=== PATIENT | female | born 1995 | race Caucasian/White ===

== ENCOUNTER 2016-08-16 04:04 | Emergency (ER) | payer OTHER ==
[~2016-08-16] VITALS: Ht 160 cm; Wt 45.5 kg
[2016-08-16 04:07] VITALS: Ht 160 cm; Wt 45.5 kg
[2016-08-16] MEDS ORDERED: ONDANSETRON (ODT) 4 MG TAB ODT STA (04:48)
--- NOTE | 2016-08-16 04:57 | ERD ---
ER Documentation Chief Complaint Date/Time DATE: 08/16/16 TIME: 04:52 Chief Complaint Pelvic pain @2200 HPI 20-year-old female presented emergency room for pelvic pain that started at around 22:00. Patient stated that she is on her period and her bleeding has increased today with her sudden pain to her pelvic area. Pain was described as sharp non-radiating. She stated that she also noticed blood in her urine, stating that this is probably due to her vaginal bleeding/menstrual. Reports difficulty walking due to her pelvic pain. Denies headache, loss of consciousness, dizziness, blurry vision, changes in vision, photophobia, facial pain, ear pain, throat pain, difficulty swallowing, neck pain, shoulder pain, chest pain, cough, hemoptysis, back pain, loss of appetite, nausea, vomiting, hematochezia, diarrhea, constipation, vaginal discharge, , the possibility of being , bladder and bowel incontinences, extremity weakness, extremity tenderness, numbness or tingling sensation, difficulty walking, recent travel, recent exposure to illness, recent antibiotic use in the last 3 months, fever, chills. Allergy: No known drug allergies. PMH: Denies. Family medical history: Denies. AO LMP: "I am on my period." Medications: Denies. Surgery: Denies. Primary Social History: Denies smoking, use of alcohol, use of illegal drugs. ROS All systems reviewed and are negative except as per history of present illness. Allergies Allergies: Coded Allergies: No Known Allergy (Unverified , 08/16/16) Physical Exam Vitals Vital Signs Date Time Temp Pulse Resp B/P Pulse Ox O2 Delivery O2 Flow Rate FiO2 08/16/16 04:07 98.6 88 20 113/63 98 Physical Exam CONSTITUTIONAL: Well-appearing; well-nourished. HEAD: Normocephalic; atraumatic. EYES: Conjunctiva clear, sclera non-icteric, EOM intact. PERRL. Ears: Hearing intact. EACs clear, TMs non-bulging, non-inflamed, translucent & mobile, ossicles normal appearance, No obstructions, no erythema, no discharges Nose: No obstructions. No polyps. No external lesions. Mucosa non-inflamed. No external lesions, septum and turbinates normal. No rhinorrhea. No discharges. Frontal sinus is non-tender to palpation. Maxillary sinus is non-tender to palpation. MOUTH: Moist mucous membranes, no lesion, no obstructions, no vesicles, no thrush, patent airway Throat: Uvula in midline. Right tonsil is +1 with no erythema, no exudate. Left tonsil is +1 with no erythema, no exudate. Tolerating secretions well. Good gag reflex. Patent airway. Neck: Supple, without lesions, bruits, or adenopathy. No mass. Thyroid non- enlarged and non-tender to palpation. CHEST: Symmetrical chest. Respirations even and not labored. No retractions noted. CARDIOVASCULAR: Normal S1, S2. RRR. No murmurs, gallops. RESPIRATORY: Normal chest excursion with respiration; breath sounds clear and equal bilaterally; no wheezes, rhonchi, or rales. Breathing even and unlabored. Speaking in clear, full, and complete sentences w/ ease. ABDOMEN: Normal bowel sounds normal. Soft, round, non-distended, non-guarding, no tenderness, no rebound, no organomegaly, no masses, no pulsating abdominal mass. No hernia. No peritoneal signs. No right upper abdominal tenderness on light and deep palpation. No right lower abdominal tenderness on light and deep palpation. No left upper abdominal tenderness on light and deep palpation. No left lower abdominal tenderness on light and deep palpation. No epigastric tenderness on light and deep palpation. : No CVA tenderness. Pelvic pain/tenderness to light and deep palpation. Difficulty walking due to her pelvic pain. BACK: Symmetrical shoulder. Spine is midline without deformity, tenderness. No evidence of trauma or deformity. PELVIS: Pelvic pain/tenderness to light and deep palpation. Difficulty walking due to her pelvic pain. MUSCULOSKELETAL: Normal gait and station. No misalignment, asymmetry, crepitation, defects, tenderness, masses, effusions, decreased range of motion, instability, atrophy or abnormal strength or tone in the head, neck, spine, ribs , pelvis or extremities. No calf tenderness. NEUROVASCULAR: Distal pulses are present. Pedal pulse are present, equal, and normal. Capillary refills are < 2 seconds. NEUROLOGIC: Alert and oriented x4. Speaks full and clear sentences. Cranial Nerves II-XII normal. Sensation to pain, touch, and proprioception normal. Grossly unremarkable. No neurologic deficits. Romberg test is negative. PSYCHOLOGICAL: The patients mood and manner are appropriate. No hallucinations , delusions. Not SI. Not HI. Has the capacity to decide for self SKIN: Normal for age and ethnicity; warm; dry; good turgor; no apparent lesions or exudates. No rashes, hives, discoloration. Intact. Result Diagram: 08/16/16 0500 08/16/16 0500 Results 24 hrs Laboratory Tests Test 08/16/16 05:00 White Blood Count 11.610^3/ul Red Blood Count 4.0010^6/ul Hemoglobin 11.6g/dl Hematocrit 33.7% Mean Corpuscular Volume 84.3fl Mean Corpuscular Hemoglobin 29.0pg Mean Corpuscular Hemoglobin Concent 34.4g/dl Red Cell Distribution Width 13.2% Platelet Count 77507^3/UL Mean Platelet Volume 10.7fl Neutrophils % 83.8% Lymphocytes % 8.1% Monocytes % 6.9% Eosinophils % 0.5% Basophils % 0.3% Nucleated Red Blood Cells % 0.0/100WBC Neutrophils # 9.710^3/ul Lymphocytes # 0.910^3/ul Monocytes # 0.810^3/ul Eosinophils # 0.110^3/ul Basophils # 0.010^3/ul Nucleated Red Blood Cells # 0.010^3/ul Sodium Level 132mmol/L Potassium Level 3.1mmol/L Chloride Level 101mmol/L Carbon Dioxide Level 22mmol/L Anion Gap 12 Blood Urea Nitrogen 5mg/dl Creatinine 0.48mg/dl Glucose Level 124mg/dl Calcium Level 8.6mg/dl Total Bilirubin 0.2mg/dl Direct Bilirubin 0.00mg/dl Indirect Bilirubin 0.2mg/dl Aspartate Amino Transf (AST/SGOT) 21IU/L Alanine Aminotransferase (ALT/SGPT) 22IU/L Alkaline Phosphatase 101IU/L Total Protein 7.1g/dl Albumin 3.9g/dl Globulin 3.20g/dl Albumin/Globulin Ratio 1.21 Amylase Level 85U/L Lipase 143U/L Serum HCG, Qualitative POSITIVE Beta HCG, Quantitative 33076.0mIU/ml Current Medications Medications (Trade) Dose Ordered Sig/Lindsey Route PRN Reason Start Time Stop Time Status Last Admin Dose Admin Acetaminophen/ Hydrocodone Bitart ([place] (5/325)) 1 tab ONCE ONCE PO 08/16/16 05:00 08/16/16 05:01 DC 08/16/16 06:01 Ondansetron HCl (Zofran Odt) 4 mg ONCE STAT ODT 08/16/16 04:48 08/16/16 04:52 DC 08/16/16 04:48 Potassium Chloride (Klor-Con 20) 40 meq ONCE STAT PO 08/16/16 06:43 08/16/16 06:44 DC 08/16/16 06:59 Procedures/MDM Examination: Please see physical examination. Disease process, medical treatment was explained to the patient and family member. They verbalized understanding and agreed with the diagnostic tests, medical treatment, and follow-up care. Radiology: Pelvic ultrasound Impression: Enlarged heterogeneous uterus with discrete intramural fibroid. Mildly prominent endometrium. Left ovarian hemorrhagic cyst. The right ovary was not visualized. Mild pelvic free fluid. Blood works: Reviewed. Urinalysis: Treatment: [place]. Zofran. Potassium. Re-evaluation: Patient is alert and oriented 4. Denies headache, dizziness, blurry vision, neck pain, shoulder pain, chest pain, back pain, abdominal pain, pelvic pain, vaginal bleeding. No right upper abdominal tenderness. No right lower abdominal tenderness. No left upper abdominal tenderness. No left lower abdominal tenderness. Negative on Rovsing sign. Negative Stowe sign. Ambulatory with steady gait and without pain to abdominal area. No episode of emesis here at the emergency department. Consultation: None. Differential diagnosis: Appendicitis versus ovarian torsion versus ovarian cyst rupture versus ovarian cyst versus pelvic pain versus urinary tract infection Medical decision m[age]-year-old female presented emergency room for pelvic pain that started at around 22:00. Patient stated that she is on her period and her bleeding has increased today with her sudden pain to her pelvic area. Pain was described as sharp non-radiating. She stated that she also noticed blood in her urine, stating that this is probably due to her vaginal bleeding/ menstrual. Reports difficulty walking due to her pelvic pain. Patient's complaint, patient's history about her complaint, my physical findings, my diagnostic test results, my reevaluation are consistent my final diagnosis of left ovarian hemorrhagic cyst, fibroid. Case was discussed with supervising emergency room physician, Dr. Arthur Hope who agreed with my diagnostic studies, medical decision making. He had me call OB health safety and environment manager. 07:15 I called ext [phone] Ortiz. I discussed with her the patient's presentation, diagnostic test results, my physical findings, medical decision making. She stated that she will come down here to the emergency department to evaluate the patient herself. Supervising emergency room physician, Dr. Moise Hope was made aware of my conversation with Dr. Ortiz. Case was endorsed to Keli LLAMAS. Departure Diagnosis: Primary Impression: Ovarian cyst Additional Impression: Fibroid Condition: Stable Additional Instructions: Patient instructed Instructed to follow-up with his PCP in 24-48 hours. Follow-up with greenhouse instructor in the next 24-48 hours. Patient stated that she will make sure to see her PCP in the next 24-48 hours, and greenhouse instructor in the next 48 hours. Instructed to Call 911 for chest pain, shortness of breath. Advised to come back here in ED as soon as possible for severity of symptoms which includes but not limited to: any new symptoms; shortness of breath/difficulty of breathing; cardiovascular changes; severe gastrointestinal symptoms; signs and symptoms of bleeding and or infection; signs of compartment syndrome/neurovascular changes; neurological changes/deficits. Patient and family member verbalized understanding. JORGE COOPER Aug 16, 2016 04:57 Departure Diagnosis: Primary Impression: Ovarian cyst Additional Impression: Fibroid Condition: Stable Additional Instructions: Patient instructed Instructed to follow-up with his PCP in 24-48 hours. Follow-up with greenhouse instructor in the next 24-48 hours. Patient stated that she will make sure to see her PCP in the next 24-48 hours, and greenhouse instructor in the next 48 hours. Instructed to Call 911 for chest pain, shortness of breath. Advised to come back here in ED as soon as possible for severity of symptoms which includes but not limited to: any new symptoms; shortness of breath/difficulty of breathing; cardiovascular changes; severe gastrointestinal symptoms; signs and symptoms of bleeding and or infection; signs of compartment syndrome/neurovascular changes; neurological changes/deficits. Patient and family member verbalized understanding. JORGE COOPER Aug 16, 2016 04:57
[2016-08-16] MEDS ORDERED: HYDROCODONE/APAP (5/325) TAB PO ONE (05:00)
[2016-08-16 05:36] LABS: ADD SCAN DIFF NO
[2016-08-16 05:49] LABS: BASOPHILS % 0.3 % (0.0-2.0); EOSINOPHILS # 0.1 10^3/ul (0.0-0.5); EOSINOPHILS % 0.5 % (0.0-7.0); HEMATOCRIT 33.7 % (37.0-47.0); HEMOGLOBIN 11.6 g/dl (12.0-16.0); LYMPHOCYTES # 0.9 10^3/ul (0.8-2.9); LYMPHOCYTES % 8.1 % (18.0-55.0); MEAN CORPUSCULAR HGB CONC 34.4 g/dl (32.0-37.0); MEAN CORPUSCULAR VOLUME 84.3 fl (72.0-104.0); MEAN PLATELET VOLUME 10.7 fl (7.4-10.4); MONOCYTE # 0.8 10^3/ul (0.3-0.9); MONOCYTES % 6.9 % (0.0-13.0); NEUTROPHIL # 9.7 10^3/ul (1.6-7.5); NEUTROPHILS % 83.8 % (30.0-74.0); PLATELET COUNT 272 10^3/UL (140-415); RED CELL DISTRIBUTION WIDTH 13.2 % (11.5-14.5); WHITE BLOOD COUNT 11.6 10^3/ul (4.8-10.8)
[2016-08-16 05:53] LABS: ALBUMIN 3.9 g/dl (3.3-4.9); ALBUMIN/GLOBULIN RATIO 1.21; BILIRUBIN,INDIRECT 0.2 mg/dl (0-1.1); BILIRUBIN,TOTAL 0.2 mg/dl (0.2-1.3); CALCIUM 8.6 mg/dl (8.4-10.2); CREATININE 0.48 mg/dl (0.44-1.00); POTASSIUM 3.1 mmol/L (3.5-5.1); TOTAL PROTEIN 7.1 g/dl (6.1-8.1)
--- NOTE | 2016-08-16 06:15 | RADRPT ---
PROCEDURE: ULTRASOUND PELVIS CLINICAL INDICATION: 20-year-old female with vaginal bleeding. TECHNIQUE: Multiple sonographic images of the pelvis were obtained utilizing a transabdominal and endovaginal technique. The images were reviewed on a PACS workstation. COMPARISON: None. FINDINGS: The uterus is enlarged and heterogeneous measuring 12.4 x 6.1 x 6.5 cm. There is a discrete ovoid fo cus of abnormal echogenicity within the uterine body measuring approximately 1.4 x 1.1 x 1.2 cm cons istent with a fibroid. The endometrial echo complex is mildly prominent and measures 15.2 mm. There is there is mild fluid identified within the posterior cul-de-sac. The right ovary was not visualiz ed. The left ovary has a normal echotexture and measures 3.1 x 1.9 x 2.6 cm. There is flow identif ied within the left ovary. There is a left ovarian hemorrhagic cyst measuring approximately 1.2 x 1. 0 x 1.1 cm. No adnexal masses are noted. IMPRESSION: 1. Enlarged heterogeneous uterus with discrete intramural fibroid. 2. Mildly prominent endometrium. 3. Left ovarian hemorrhagic cyst. 4. The right ovary was not visualized. 5. Mild pelvic free fluid. .Casey Amin MD, Date Time Electronically viewed and signed by .Casey Amin MD, on 08/16/2016 06:15 .Dee Dee/
[2016-08-16] MEDS ORDERED: POTASSIUM CHLORIDE (SR) 20 MEQ TAB PO STA (06:43)
[2016-08-16] MEDS ORDERED: ACET500C5 PO (10:49)
--- NOTE | 2016-08-16 10:55 | EN ---
Date/Time of Note Date/Time of Note DATE: 08/16/16 TIME: 10:52 ER Progress Note This patient was signed out to me pending results of an Rh status and visit from the laborist retail operations specialist Dr. Riley Lin has seen and evaluated the patient and removed the remainder of the fetus that had expelled itself. Patient is hemodynamically stable. Patient' s Rh status was B+. She was discharged home in stable condition with a prescription for Tylenol for any pain as well as outpatient follow-up with Dr. Kent, PUBLIC ADDRESS SYSTEM MECHANIC specialist in patients area. No indication for ectopic at this time. Rh status B+ positive TESS HASKINS PA-C Aug 16, 2016 10:55
--- NOTE | 2016-08-16 11:32 | CONS ---
Date/Time of Note Date/Time of Note DATE: 08/16/16 TIME: 11:02 Assessment/Plan Assessment/Plan Chief Complaint/Hosp Course Completed . Problems: Additional Assessment/Plan Pelvic rest x 4 weeks. Gave pt a referral to a doctor that lives near her for family planning purposes as pt states she is in college and doesn't want a baby right now although she has been sexually active x 1 year with absolutely no control method, not even withdrawal. Consultation Date/Type/Reason Admit Date/Time August 16, 2016 Date of Consultation: Aug 16, 2016 Type of Consultation: ER Reason for Consultation , bleeding Hx of Present Illness Pt is a 20 y.o. G1 who came in with heavy bleeding and initially said she was virginal and had never missed a period but was found to be with a beta HCG of 52,000. An Us did not reveal an IUP nor were there any adnexal masses. The was a ruptured corpus luteum cyst and a small amount of free fluid. I was called down to the ER to evaluate the pt. The pt adamantly states she has not missed a period. She says she started bleeding more than 24 hours ago. No dizziness or headaches. The cramping is central and pelvic, not one-sided. PMHx:none. PSHx: none. NKDA. Abdomen soft, NT, flat. Pelvic: there was a gestational sac sitting in the vaginal canal which was easily removed. The sac had a fetus in it consistent with a 10 weeks gestation as it was about 4cm in crown-rump length with legs and arms formed. A speculum was then placed and the placental tissue was visualized coming through the cervix. It was grasped with a pair of ring forceps and gently teased out until it came out in total. The cervix promptly closed and there was minimal to no bleeding. The vault was cleaned with a 4x4. The speculum was removed. The pt's legs and perineum was cleaned and the pt was given a fresh pad and underwear and got dressed. She was not having much cramping to speak of. Her blood type is B+. Past Medical History Medical History: no pertinent history Past Surgical History Past Surgical Hx: no surgical history Family History Significant Family History: no pertinent family hx Social History Alcohol Use: none Smoking Status: Never smoker Drug Use: none Exam/Review of Systems Vital Signs Vitals Vital Signs Date Time Temp Pulse Resp B/P Pulse Ox O2 Delivery O2 Flow Rate FiO2 08/16/16 04:07 98.6 88 20 113/63 98 Exam Pelvic: there was a gestational sac sitting in the vaginal canal which was easily removed. The sac had a fetus in it consistent with a 10 weeks gestation as it was about 4cm in crown-rump length with legs and arms formed. A speculum was then placed and the placental tissue was visualized coming through the cervix. It was febile and VS are stable. Agrasped with a pair of ring forceps and gently teased out until it came out in total. The cervix promptly closed and there was minimal to no bleeding. The vault was cleaned with a 4x4. The speculum was removed. The pt's legs and perineum was cleaned and the pt was given a fresh pad and underwear and got dressed. She was not having much cramping to speak of. Her blood type is B+. Results Result Diagram: 08/16/16 0500 08/16/16 0500 Results 24 hrs Laboratory Tests Test 08/16/16 05:00 White Blood Count 11.6 H Red Blood Count 4.00 L Hemoglobin 11.6 L Hematocrit 33.7 L Mean Corpuscular Volume 84.3 Mean Corpuscular Hemoglobin 29.0 Mean Corpuscular Hemoglobin Concent 34.4 Red Cell Distribution Width 13.2 Platelet Count 272 Mean Platelet Volume 10.7 H Neutrophils % 83.8 H Lymphocytes % 8.1 L Monocytes % 6.9 Eosinophils % 0.5 Basophils % 0.3 Nucleated Red Blood Cells % 0.0 Neutrophils # 9.7 H Lymphocytes # 0.9 Monocytes # 0.8 Eosinophils # 0.1 Basophils # 0.0 Nucleated Red Blood Cells # 0.0 Sodium Level 132 L Potassium Level 3.1 L Chloride Level 101 Carbon Dioxide Level 22 Anion Gap 12 Blood Urea Nitrogen 5 L Creatinine 0.48 Glucose Level 124 Calcium Level 8.6 Total Bilirubin 0.2 Direct Bilirubin 0.00 Indirect Bilirubin 0.2 Aspartate Amino Transf (AST/SGOT) 21 Alanine Aminotransferase (ALT/SGPT) 22 Alkaline Phosphatase 101 Total Protein 7.1 Albumin 3.9 Globulin 3.20 Albumin/Globulin Ratio 1.21 Amylase Level 85 Lipase 143 Serum HCG, Qualitative POSITIVE Beta HCG, Quantitative 80836.0 GAYLA RAMIRES MD Aug 16, 2016 11:32
[2016-08-16 11:34] VITALS: BP 97/61; PULSE 75; RESP 20; TEMP 98.7
== END 2016-08-16 11:36 | disposition home or self-care (01) ==
LOC: FTE 04:04
DX: N83.202 Unspecified ovarian cyst, left side (principal); D25.9 Leiomyoma of uterus, unspecified
CPT/HCPCS: 36415; 76830; 76856; 80053; 82150; 83690; 84702; 84703; 85025; 86900; 86901; Z7502; Z7610; 88305

== ENCOUNTER 2017-12-15 17:10 | Outpatient (CLI) | END 2017-12-15 22:05 | disposition home or self-care (01) ==

== ENCOUNTER 2018-01-05 12:50 | Inpatient (IN) | END 2018-01-08 17:20 | disposition home or self-care (01) | DRG 775 ==